=== PATIENT | male | born 1965 | race Caucasian/White ===

== ENCOUNTER 2021-07-21 13:29 | Inpatient (IN) ==
[2021-07-21] MEDS ORDERED: DEXTROSE 50% 25 GM/50 ML SYRINGE IV ONE ×2 (13:37→18:46)
[2021-07-21] MEDS ORDERED: DEXTROSE 50% 25 GM/50 ML VIAL IV STA (13:40)
[2021-07-21] MEDS ORDERED: NOREPINEPHRINE 4 MG/4 ML VIAL IV ONE (14:01)
[2021-07-21 14:03] LABS: Basophils % 0.4 % (0.0-0.8); Eosinophils % 0.1 % (0.00-10.9); Hematocrit 46.2 VOL% (42.0-52.0); Hemoglobin 13.7 GM/DL (14.0-18.0); Immature Granulocytes % 1.3 %; Lymphocytes # 0.6 10*3/uL (1.4-4.0); Lymphocytes % 7.9 % (21.2-54.2); Mean Corpuscular HGB Conc 29.7 GM/DL (32-36); Mean Corpuscular Volume 106.7 FL (87-102); Mean Platelet Volume 9.7 FL (9.6-12.0); Monocytes % 2.4 % (1.7-12.7); NRBC # 0.19 10*3/uL; Neutrophils % 87.9 % (38.7-73.9); Platelet Count 234 T/CUMM (130-400); Red Blood Count 4.33 MC/CUMM (3.8-5.5); Red Cell Distribution Width 15.1 % (9.3-17.3)
[2021-07-21] MEDS: NOREPINEPHRINE 8 MG in SODIUM CHLORIDE 0.9% 242 ML IV PRN ×3 (14:13→22:20)
[2021-07-21] MEDS: MIDAZOLAM 100 MG in SODIUM CHLORIDE 0.9% 80 ML IV PRN (14:30)
[2021-07-21 14:31] LABS: PT Patient Result 21.9 SECS (10.5-12.0)
[2021-07-21 14:35] LABS: Pt O2 Delivery Device Ventilator
[2021-07-21 14:39] LABS: Alanine Aminotransferase 1861 U/L (16-61); Albumin 2.3 G/DL (3.4-5.0); Alkaline Phosphatase 114 U/L (45-117); Aspartate Amino Transferase 2564 U/L (0-37); Blood Urea Nitrogen 38 MG/DL (7-18); Calcium 8.5 MG/DL (8.5-10.1); Carbon Dioxide 27 MMOL/L (21-32); Estimated Glom Filtration Rate 38 ML/MIN; Glucose 75 MG/DL (74-106); Osmolality,Calculated 288.3 MOS/KG (273-304); Potassium 4.7 MMOL/L (3.5-5.1); Sodium 141 MMOL/L (136-145); Total Protein 7.1 G/DL (6.4-8.2)
[2021-07-21 14:41] LABS: Atypical Lymphocytes Few; Band Neutrophils 1 % (0-10); Lymphocytes 7 % (20-55); Nucleated Red Blood Cells 6 (0-5); Segmented Neutrophils 90 % (50-85); Total Cells Counted 100
[2021-07-21 14:43] LABS: ABG Base Excess -4.2 MMOL/L (-2.5-2.5); ABG HCO3 27.9 MMOL/L (20-26); ABG Oxygen Saturation 49.2 % (95-100); ABG TCO2 30.7 MMOL/L (23-27)
[2021-07-21 14:45] LABS: ABG PCO2 91.2 MM HG (35-48); ABG PH 7.104 (7.35-7.45); ABG PO2 34.6 MM HG (80-95)
[2021-07-21] MEDS ORDERED: SODIUM CHLORIDE 0.9% 3,400 ML IV ONE (15:06)
[2021-07-21] MEDS ORDERED: LEVOFLOXACIN INJ 750 MG/150 ML PREMIX IV STA (15:07)
[2021-07-21] MEDS ORDERED: HYDROCORTISONE 100 MG VIAL IV STA (15:07)
[2021-07-21 15:10] LABS: ABG Base Excess -6.5 MMOL/L (-2.5-2.5); ABG HCO3 22.4 MMOL/L (20-26); ABG Oxygen Saturation 89.2 % (95-100); ABG PCO2 58.4 MM HG (35-48); ABG PO2 68.6 MM HG (80-95); ABG TCO2 24.2 MMOL/L (23-27)
[2021-07-21 15:13] LABS: ABG PH 7.202 (7.35-7.45)
[2021-07-21] MEDS ORDERED: ALBUTEROL 2.5 MG/3 ML NEB RESP TX ONE (15:15)
[2021-07-21] MEDS ORDERED: ALBUTEROL 2.5 MG/3 ML NEB RESP TX STA ×2 (15:19)
[2021-07-21] MEDS ORDERED: ALBUTEROL 2.5 MG/3 ML NEB RESP TX PRN (16:00)
[2021-07-21] MEDS ORDERED: ONDANSETRON 4 MG/2 ML VIAL IV PRN (16:00)
[2021-07-21] MEDS: PANTOPRAZOLE 40 MG VIAL IV SCH (16:44)
[2021-07-21 17:23] LABS: Bacteria,Urine Occasional /HPF (Few); Bilirubin,Urine Negative (Negative); Blood, Urine Moderate mg/dL (Negative); Glucose,Urine (UA) Negative (Negative); Hyaline Casts,Urine 29 /LPF (0-3); Ketones,Urine Negative (Negative); Mucus,Urine Occasional /LPF (Occasional); Nitrite,Urine Negative (Negative); Protein,Urine >=500 MG/DL; RBC,Urine 2 /HPF (0-4); Urine Appearance CLOUDY (Clear); Urine Color Amber (Yellow); Urine Specific Gravity 1.016 (1.001-1.035)
[2021-07-21] MEDS: LACTATED RINGERS 1,000 ML IV SCH ×2 (17:43→19:40)
[2021-07-21] MEDS: methylPREDNISolone SOD SUC 40 MG/1 ML VIAL IV SCH (17:43)
[2021-07-21] MEDS: LEVOTHYROXINE 100 MCG VIAL IV SCH (18:18)
[2021-07-21] MEDS: AZITHROMYCIN INJ 500 MG in SODIUM CHLORIDE 0.9% 250 ML IV SCH (18:26)
[2021-07-21] MEDS ORDERED: DEXTROSE 10% 250 ML BAG IV PRN (18:47)
[2021-07-21] MEDS: ALBUTEROL/IPRATROPIUM 3 ML NEB RESP TX SCH (20:16)
[2021-07-21] MEDS: DEXTROSE 5% 1,000 ML IV SCH (20:25)
[2021-07-21] MEDS: ENOXAPARIN 30 MG/0.3 ML SYRINGE SUBCUT SCH (21:14)
[2021-07-22] MEDS: ALBUTEROL/IPRATROPIUM 3 ML NEB RESP TX SCH ×4 (00:17→20:15)
[2021-07-22] MEDS: methylPREDNISolone SOD SUC 40 MG/1 ML VIAL IV SCH ×3 (00:25→17:13)
[2021-07-22] MEDS: MIDAZOLAM 100 MG in SODIUM CHLORIDE 0.9% 80 ML IV PRN (00:45)
[2021-07-22 02:35] LABS: Basophils % 0.2 % (0.0-0.8); Hematocrit 46.1 VOL% (42.0-52.0); Hemoglobin 14.1 GM/DL (14.0-18.0); Immature Granulocytes % 0.6 %; Lymphocytes # 0.3 10*3/uL (1.4-4.0); Lymphocytes % 1.9 % (21.2-54.2); Mean Corpuscular HGB Conc 30.6 GM/DL (32-36); Mean Corpuscular Volume 102.9 FL (87-102); Mean Platelet Volume 10.4 FL (9.6-12.0); Monocytes % 2.8 % (1.7-12.7); Neutrophils % 94.5 % (38.7-73.9); Platelet Count 221 T/CUMM (130-400); Red Blood Count 4.48 MC/CUMM (3.8-5.5); Red Cell Distribution Width 14.8 % (9.3-17.3); White Blood Count 15.6 T/CUMM (4-12)
[2021-07-22 02:42] LABS: Calcium 7.6 MG/DL (8.5-10.1); Osmolality,Calculated 287.8 MOS/KG (273-304); Potassium 4.5 MMOL/L (3.5-5.1)
[2021-07-22] MEDS: LACTATED RINGERS 1,000 ML IV SCH ×5 (03:07→22:00)
[2021-07-22 03:13] LABS: Lymphocytes 2 % (20-55); Platelet Estimate Adequate; Segmented Neutrophils 97 % (50-85); Total Cells Counted 100
[2021-07-22 04:18] LABS: Allen Test Positive; Pt O2 Delivery Device Ventilator
[2021-07-22 04:32] LABS: ABG Base Excess -1.6 MMOL/L (-2.5-2.5); ABG HCO3 24.7 MMOL/L (20-26); ABG Oxygen Saturation 97.2 % (95-100); ABG PCO2 47.4 MM HG (35-48); ABG PH 7.334 (7.35-7.45); ABG PO2 113.7 MM HG (80-95); ABG TCO2 26.1 MMOL/L (23-27)
[2021-07-22] MEDS: LEVOTHYROXINE 100 MCG VIAL IV SCH (06:30)
[2021-07-22] MEDS ORDERED: GLUCAGON 1 MG VIAL IM PRN (08:40)
[2021-07-22] MEDS ORDERED: DEXTROSE 50% 25 GM/50 ML VIAL IV PRN (08:40)
[2021-07-22] MEDS: DEXTROSE 5% 1,000 ML IV SCH (16:17)
[2021-07-22] MEDS: carvediloL 6.25 MG TABLET PO SCH (17:13)
[2021-07-22] MEDS: PANTOPRAZOLE 40 MG VIAL IV SCH (17:13)
[2021-07-22] MEDS: AZITHROMYCIN INJ 500 MG in SODIUM CHLORIDE 0.9% 250 ML IV SCH (17:20)
[2021-07-22] MEDS ORDERED: MORPHINE 4 MG/1 ML VIAL ONE (18:15)
[2021-07-22] MEDS: MORPHINE 4 MG/1 ML VIAL IV PRN (18:17)
[2021-07-22] MEDS: ALPRAZolam 0.5 MG TABLET PO SCH (21:30)
[2021-07-22] MEDS: ENOXAPARIN 30 MG/0.3 ML SYRINGE SUBCUT SCH (21:30)
[2021-07-23] MEDS: ALBUTEROL/IPRATROPIUM 3 ML NEB RESP TX SCH ×4 (00:15→18:11)
[2021-07-23] MEDS: MIDAZOLAM 100 MG in SODIUM CHLORIDE 0.9% 80 ML IV PRN (00:25)
[2021-07-23] MEDS: methylPREDNISolone SOD SUC 40 MG/1 ML VIAL IV SCH ×3 (00:27→16:31)
[2021-07-23 03:33] LABS: ABG Base Excess -3.5 MMOL/L (-2.5-2.5); ABG HCO3 24.4 MMOL/L (20-26); ABG Oxygen Saturation 97.7 % (95-100); ABG PCO2 56.4 MM HG (35-48); ABG PH 7.254 (7.35-7.45); ABG TCO2 26.1 MMOL/L (23-27)
[2021-07-23 03:44] LABS: Basophils % 0.2 % (0.0-0.8); Hematocrit 43.4 VOL% (42.0-52.0); Hemoglobin 13.6 GM/DL (14.0-18.0); Immature Granulocytes % 1.1 %; Immature Granulocytes Absolute 0.14 #; Lymphocytes # 0.6 10*3/uL (1.4-4.0); Lymphocytes % 4.4 % (21.2-54.2); Mean Corpuscular HGB Conc 31.3 GM/DL (32-36); Mean Corpuscular Volume 99.5 FL (87-102); Mean Platelet Volume 11.7 FL (9.6-12.0); Monocytes % 1.5 % (1.7-12.7); NRBC # 0.14 10*3/uL; Neutrophils % 92.8 % (38.7-73.9); Platelet Count 160 T/CUMM (130-400); Red Blood Count 4.36 MC/CUMM (3.8-5.5); Red Cell Distribution Width 14.9 % (9.3-17.3); White Blood Count 12.7 T/CUMM (4-12)
[2021-07-23 04:15] LABS: Calcium 7.1 MG/DL (8.5-10.1); Osmolality,Calculated 293.1 MOS/KG (273-304); Potassium 5.1 MMOL/L (3.5-5.1)
[2021-07-23] MEDS: LACTATED RINGERS 1,000 ML IV SCH (04:20)
[2021-07-23 04:22] LABS: Lymphocytes 3 % (20-55); Platelet Estimate Adequate; Segmented Neutrophils 97 % (50-85); Total Cells Counted 100
[2021-07-23] MEDS ORDERED: MAGNESIUM SULF RIDER 4 GM/100 ML PREMIX IV PRN (04:25)
[2021-07-23] MEDS ORDERED: MAGNESIUM SULF RIDER 2 GM/50 ML PREMIX IV PRN (04:25)
[2021-07-23] MEDS: LEVOTHYROXINE 150 MCG TABLET PO SCH (06:28)
[2021-07-23] MEDS ORDERED: LEVOTHYROXINE 150 MCG TABLET PO SCH (06:30)
[2021-07-23] MEDS: FOLIC ACID 1 MG TABLET PO SCH (08:31)
[2021-07-23] MEDS: ALPRAZolam 0.5 MG TABLET PO SCH ×2 (08:31→21:38)
[2021-07-23] MEDS: carvediloL 6.25 MG TABLET PO SCH ×2 (08:31→16:31)
[2021-07-23] MEDS: MORPHINE 4 MG/1 ML VIAL IV PRN ×2 (11:33→17:50)
[2021-07-23] MEDS: PANTOPRAZOLE 40 MG VIAL IV SCH (16:31)
[2021-07-23] MEDS: AZITHROMYCIN INJ 500 MG in SODIUM CHLORIDE 0.9% 250 ML IV SCH (16:31)
[2021-07-23] MEDS: ENOXAPARIN 30 MG/0.3 ML SYRINGE SUBCUT SCH (21:38)
[2021-07-24] MEDS: methylPREDNISolone SOD SUC 40 MG/1 ML VIAL IV SCH ×3 (00:01→19:14)
[2021-07-24] MEDS: ALBUTEROL/IPRATROPIUM 3 ML NEB RESP TX SCH ×4 (00:25→19:30)
[2021-07-24] MEDS: MIDAZOLAM 100 MG in SODIUM CHLORIDE 0.9% 80 ML IV PRN (02:28)
[2021-07-24 03:36] LABS: Basophils % 0.1 % (0.0-0.8); Hematocrit 40.2 VOL% (42.0-52.0); Hemoglobin 12.8 GM/DL (14.0-18.0); Immature Granulocytes Absolute 0.11 #; Lymphocytes # 0.4 10*3/uL (1.4-4.0); Lymphocytes % 3.9 % (21.2-54.2); Mean Corpuscular HGB Conc 31.8 GM/DL (32-36); Mean Corpuscular Volume 98.8 FL (87-102); Mean Platelet Volume 11.8 FL (9.6-12.0); Monocytes % 1.9 % (1.7-12.7); NRBC # 0.12 10*3/uL; Neutrophils % 93.1 % (38.7-73.9); Platelet Count 136 T/CUMM (130-400); Red Blood Count 4.07 MC/CUMM (3.8-5.5); Red Cell Distribution Width 15.3 % (9.3-17.3); White Blood Count 10.9 T/CUMM (4-12)
[2021-07-24 03:38] LABS: ABG Base Excess -1.9 MMOL/L (-2.5-2.5); ABG HCO3 22.8 MMOL/L (20-26); ABG Oxygen Saturation 95.5 % (95-100); ABG PCO2 50.7 MM HG (35-48); ABG PH 7.304 (7.35-7.45); ABG PO2 96.3 MM HG (80-95); ABG TCO2 22.4 MMOL/L (23-27)
[2021-07-24 04:02] LABS: Calcium 7.5 MG/DL (8.5-10.1); Osmolality,Calculated 299.1 MOS/KG (273-304); Potassium 4.6 MMOL/L (3.5-5.1)
[2021-07-24 04:23] LABS: Bilirubin,Direct 0.23 MG/DL (0.0-0.20); Bilirubin,Indirect 0.5 MG/DL (0.0-1.0); Bilirubin,Total 0.7 MG/DL (0.20-1.00); Total Protein 6.5 G/DL (6.4-8.2)
[2021-07-24 04:27] LABS: Band Neutrophils 2 % (0-10); Lymphocytes 1 % (20-55); Platelet Estimate Normal; Segmented Neutrophils 97 % (50-85); Total Cells Counted 100
[2021-07-24] MEDS: LEVOTHYROXINE 150 MCG TABLET PO SCH (05:53)
[2021-07-24] MEDS ORDERED: FUROSEMIDE 40 MG/4 ML VIAL IV ONE (07:36)
[2021-07-24] MEDS: FOLIC ACID 1 MG TABLET PO SCH (08:53)
[2021-07-24] MEDS: ALPRAZolam 0.5 MG TABLET PO SCH ×2 (08:54→20:24)
[2021-07-24] MEDS: carvediloL 6.25 MG TABLET PO SCH ×2 (08:54→19:14)
[2021-07-24] MEDS: MORPHINE 4 MG/1 ML VIAL IV PRN ×2 (12:23→19:33)
[2021-07-24] MEDS: PANTOPRAZOLE 40 MG VIAL IV SCH (19:15)
[2021-07-24] MEDS: AZITHROMYCIN INJ 500 MG in SODIUM CHLORIDE 0.9% 250 ML IV SCH (19:16)
[2021-07-24] MEDS: ENOXAPARIN 30 MG/0.3 ML SYRINGE SUBCUT SCH (20:25)
[2021-07-25] MEDS: methylPREDNISolone SOD SUC 40 MG/1 ML VIAL IV SCH ×3 (00:46→17:53)
[2021-07-25] MEDS: ALBUTEROL/IPRATROPIUM 3 ML NEB RESP TX SCH ×4 (01:45→20:24)
[2021-07-25] MEDS: MIDAZOLAM 100 MG in SODIUM CHLORIDE 0.9% 80 ML IV PRN (01:55)
[2021-07-25 04:23] LABS: Basophils % 0.2 % (0.0-0.8); Hematocrit 41.4 VOL% (42.0-52.0); Hemoglobin 13.1 GM/DL (14.0-18.0); Immature Granulocytes % 1.2 %; Immature Granulocytes Absolute 0.14 #; Lymphocytes # 0.4 10*3/uL (1.4-4.0); Lymphocytes % 3.3 % (21.2-54.2); Mean Corpuscular HGB Conc 31.6 GM/DL (32-36); Mean Corpuscular Volume 97.6 FL (87-102); Mean Platelet Volume 12.4 FL (9.6-12.0); Monocytes % 2.9 % (1.7-12.7); NRBC # 0.08 10*3/uL; Neutrophils % 92.4 % (38.7-73.9); Platelet Count 115 T/CUMM (130-400); Red Blood Count 4.24 MC/CUMM (3.8-5.5); Red Cell Distribution Width 15.7 % (9.3-17.3); White Blood Count 11.9 T/CUMM (4-12)
[2021-07-25 04:29] LABS: ABG Base Excess -0.4 MMOL/L (-2.5-2.5); ABG HCO3 26.1 MMOL/L (20-26); ABG Oxygen Saturation 97.9 % (95-100); ABG PCO2 50.6 MM HG (35-48); ABG PH 7.331 (7.35-7.45); ABG PO2 133.5 MM HG (80-95); ABG TCO2 27.7 MMOL/L (23-27); Allen Test Positive; Pt O2 Delivery Device Ventilator
[2021-07-25 04:36] LABS: Calcium 7.7 MG/DL (8.5-10.1); Osmolality,Calculated 305.7 MOS/KG (273-304); Potassium 4.9 MMOL/L (3.5-5.1)
[2021-07-25 04:51] LABS: Hypochromia Slight; Lymphocytes 3 % (20-55); Nucleated Red Blood Cells 2 (0-5); Segmented Neutrophils 95 % (50-85); Total Cells Counted 100
[2021-07-25 04:52] LABS: Macrocytosis Slight
[2021-07-25] MEDS: LEVOTHYROXINE 150 MCG TABLET PO SCH (05:50)
[2021-07-25] MEDS: carvediloL 6.25 MG TABLET PO SCH ×2 (08:35→17:50)
[2021-07-25] MEDS: FOLIC ACID 1 MG TABLET PO SCH (08:35)
[2021-07-25] MEDS: ALPRAZolam 0.5 MG TABLET PO SCH ×2 (08:35→21:15)
[2021-07-25] MEDS ORDERED: FUROSEMIDE 40 MG/4 ML VIAL IV SCH (09:00)
[2021-07-25] MEDS: PANTOPRAZOLE 40 MG VIAL IV SCH (17:52)
[2021-07-25] MEDS: AZITHROMYCIN INJ 500 MG in SODIUM CHLORIDE 0.9% 250 ML IV SCH (17:54)
[2021-07-25] MEDS: ENOXAPARIN 30 MG/0.3 ML SYRINGE SUBCUT SCH (21:38)
[2021-07-26] MEDS: methylPREDNISolone SOD SUC 40 MG/1 ML VIAL IV SCH ×3 (00:32→16:08)
[2021-07-26] MEDS: ALBUTEROL/IPRATROPIUM 3 ML NEB RESP TX SCH ×4 (01:04→19:53)
[2021-07-26 03:32] LABS: ABG Base Excess 2.5 MMOL/L (-2.5-2.5); ABG HCO3 26.5 MMOL/L (20-26); ABG Oxygen Saturation 95.9 % (95-100); ABG PH 7.362 (7.35-7.45); ABG PO2 92.6 MM HG (80-95); ABG TCO2 25.3 MMOL/L (23-27)
[2021-07-26 03:58] LABS: Basophils % 0.2 % (0.0-0.8); Immature Granulocytes % 1.6 %; Immature Granulocytes Absolute 0.19 #; Lymphocytes # 0.4 10*3/uL (1.4-4.0); Lymphocytes % 3.4 % (21.2-54.2); Mean Corpuscular HGB Conc 32.5 GM/DL (32-36); Mean Corpuscular Volume 97.6 FL (87-102); NRBC # 0.05 10*3/uL; Neutrophils % 91.8 % (38.7-73.9); Platelet Count 127 T/CUMM (130-400); Red Cell Distribution Width 16.1 % (9.3-17.3); White Blood Count 12.2 T/CUMM (4-12)
[2021-07-26 04:15] LABS: Calcium 8.2 MG/DL (8.5-10.1); Potassium 4.2 MMOL/L (3.5-5.1)
[2021-07-26 04:19] LABS: Band Neutrophils 2 % (0-10); Hypochromia 1+; Lymphocytes 4 % (20-55); Segmented Neutrophils 88 % (50-85); Total Cells Counted 100
[2021-07-26 04:20] LABS: Macrocytosis Slight; Platelet Estimate Adequate
[2021-07-26] MEDS: MORPHINE 4 MG/1 ML VIAL IV PRN (09:05)
[2021-07-26] MEDS ORDERED: MOISTURIZING CREAM (EUCERIN) 106 GM JAR TOP PRN (10:01)
[2021-07-26] MEDS: ALPRAZolam 0.5 MG TABLET PO SCH ×2 (10:37→22:40)
[2021-07-26] MEDS: FOLIC ACID 1 MG TABLET PO SCH (10:37)
[2021-07-26] MEDS: LEVOTHYROXINE 150 MCG TABLET PO SCH (10:37)
[2021-07-26] MEDS: carvediloL 6.25 MG TABLET PO SCH ×2 (10:38→16:08)
[2021-07-26] MEDS ORDERED: fentaNYL INJ 1,250 MCG in SODIUM CHLORIDE 0.9% 225 ML IV PRN (15:26)
[2021-07-26] MEDS: PANTOPRAZOLE 40 MG VIAL IV SCH (16:06)
[2021-07-26] MEDS: ENOXAPARIN 30 MG/0.3 ML SYRINGE SUBCUT SCH (22:40)
[2021-07-27] MEDS: ALBUTEROL/IPRATROPIUM 3 ML NEB RESP TX SCH ×4 (00:10→19:13)
[2021-07-27] MEDS: methylPREDNISolone SOD SUC 40 MG/1 ML VIAL IV SCH ×3 (00:45→16:45)
[2021-07-27 04:23] LABS: ABG HCO3 27.9 MMOL/L (20-26); ABG Oxygen Saturation 95.7 % (95-100); ABG PCO2 45.4 MM HG (35-48); ABG PH 7.417 (7.35-7.45); ABG PO2 86.4 MM HG (80-95); ABG TCO2 25.4 MMOL/L (23-27); Allen Test Positive; Pt O2 Delivery Device Ventilator
[2021-07-27 06:14] LABS: Basophils % 0.2 % (0.0-0.8); Hematocrit 40.5 VOL% (42.0-52.0); Hemoglobin 13.1 GM/DL (14.0-18.0); Immature Granulocytes % 2.4 %; Lymphocytes # 0.5 10*3/uL (1.4-4.0); Lymphocytes % 3.9 % (21.2-54.2); Mean Corpuscular HGB Conc 32.3 GM/DL (32-36); Mean Platelet Volume 11.1 FL (9.6-12.0); Monocytes % 2.9 % (1.7-12.7); NRBC # 0.03 10*3/uL; Neutrophils % 90.6 % (38.7-73.9); Platelet Count 124 T/CUMM (130-400); Red Blood Count 4.09 MC/CUMM (3.8-5.5); Red Cell Distribution Width 16.2 % (9.3-17.3); White Blood Count 12.6 T/CUMM (4-12)
[2021-07-27 06:38] LABS: Calcium 9.2 MG/DL (8.5-10.1); Potassium 4.4 MMOL/L (3.5-5.1)
[2021-07-27 06:41] LABS: Band Neutrophils 1 % (0-10); Lymphocytes 3 % (20-55); Platelet Estimate Normal; Segmented Neutrophils 92 % (50-85); Total Cells Counted 100
[2021-07-27] MEDS ORDERED: DEXMEDETOMIDINE 200 MCG in SODIUM CHLORIDE 0.9% 48 ML IV PRN (08:00)
[2021-07-27] MEDS: LEVOTHYROXINE 150 MCG TABLET PO SCH (08:30)
[2021-07-27] MEDS: ALPRAZolam 0.5 MG TABLET PO SCH ×2 (08:30→21:33)
[2021-07-27] MEDS: carvediloL 6.25 MG TABLET PO SCH ×2 (08:30→16:45)
[2021-07-27] MEDS: FOLIC ACID 1 MG TABLET PO SCH (08:30)
[2021-07-27] MEDS: SENNA 8.6 MG TABLET PO SCH ×2 (10:05→21:33)
[2021-07-27] MEDS: DOCUSATE SODIUM 100 MG/10 ML UDCUP PO SCH ×2 (10:05→21:33)
[2021-07-27] MEDS: PANTOPRAZOLE 40 MG VIAL IV SCH (16:44)
[2021-07-27] MEDS: ENOXAPARIN 30 MG/0.3 ML SYRINGE SUBCUT SCH (21:30)
[2021-07-28] MEDS: ALBUTEROL/IPRATROPIUM 3 ML NEB RESP TX SCH ×4 (00:04→19:50)
[2021-07-28] MEDS: methylPREDNISolone SOD SUC 40 MG/1 ML VIAL IV SCH ×3 (01:41→16:58)
[2021-07-28 03:53] LABS: Basophils % 0.3 % (0.0-0.8); Hematocrit 40.5 VOL% (42.0-52.0); Immature Granulocytes % 2.5 %; Immature Granulocytes Absolute 0.38 #; Lymphocytes # 0.5 10*3/uL (1.4-4.0); Lymphocytes % 3.3 % (21.2-54.2); Mean Corpuscular HGB Conc 32.1 GM/DL (32-36); Mean Corpuscular Volume 99.3 FL (87-102); Mean Platelet Volume 11.5 FL (9.6-12.0); Monocytes % 4.3 % (1.7-12.7); Neutrophils % 89.6 % (38.7-73.9); Platelet Count 106 T/CUMM (130-400); Red Blood Count 4.08 MC/CUMM (3.8-5.5); Red Cell Distribution Width 16.7 % (9.3-17.3); White Blood Count 15.2 T/CUMM (4-12)
[2021-07-28 04:14] LABS: Calcium 9.2 MG/DL (8.5-10.1); Potassium 5.2 MMOL/L (3.5-5.1)
[2021-07-28 04:21] LABS: Band Neutrophils 2 % (0-10); Hypochromia Slight; Lymphocytes 2 % (20-55); Metamyelocytes 1 %; Segmented Neutrophils 94 % (50-85); Total Cells Counted 100
[2021-07-28 04:22] LABS: Macrocytosis Slight; Platelet Estimate Adequate
[2021-07-28 04:30] LABS: ABG Base Excess 3.7 MMOL/L (-2.5-2.5); ABG HCO3 27.7 MMOL/L (20-26); ABG Oxygen Saturation 94.3 % (95-100); ABG PCO2 48.6 MM HG (35-48); ABG PH 7.393 (7.35-7.45); ABG PO2 78.9 MM HG (80-95); Allen Test Positive; Pt O2 Delivery Device Ventilator
[2021-07-28] MEDS: LEVOTHYROXINE 150 MCG TABLET PO SCH (06:48)
[2021-07-28] MEDS: carvediloL 6.25 MG TABLET PO SCH ×2 (08:21→16:50)
[2021-07-28] MEDS: DOCUSATE SODIUM 100 MG/10 ML UDCUP PO SCH ×2 (08:21→21:24)
[2021-07-28] MEDS: FOLIC ACID 1 MG TABLET PO SCH (08:22)
[2021-07-28] MEDS: ALPRAZolam 0.5 MG TABLET PO SCH ×2 (08:22→21:25)
[2021-07-28] MEDS: SENNA 8.6 MG TABLET PO SCH ×2 (08:22→21:25)
[2021-07-28] MEDS ORDERED: FUROSEMIDE 40 MG/4 ML VIAL IV ONE (10:00)
[2021-07-28] MEDS: amLODIPine 5 MG TABLET PO SCH (11:31)
[2021-07-28] MEDS: ENOXAPARIN 30 MG/0.3 ML SYRINGE SUBCUT SCH (21:25)
[2021-07-29] MEDS: methylPREDNISolone SOD SUC 40 MG/1 ML VIAL IV SCH ×3 (00:15→17:50)
[2021-07-29] MEDS: ALBUTEROL/IPRATROPIUM 3 ML NEB RESP TX SCH ×4 (01:55→19:15)
[2021-07-29] MEDS: LEVOTHYROXINE 150 MCG TABLET PO SCH (06:03)
[2021-07-29 08:27] LABS: Blood Urea Nitrogen 86 MG/DL (7-18); Calcium 9.1 MG/DL (8.5-10.1); Carbon Dioxide 27 MMOL/L (21-32); Estimated Glom Filtration Rate 40 ML/MIN; Glucose 146 MG/DL (74-106); Osmolality,Calculated 311.1 MOS/KG (273-304); Potassium 5.3 MMOL/L (3.5-5.1); Sodium 142 MMOL/L (136-145)
[2021-07-29] MEDS: carvediloL 6.25 MG TABLET PO SCH ×2 (09:51→17:50)
[2021-07-29] MEDS: DOCUSATE SODIUM 100 MG/10 ML UDCUP PO SCH ×2 (09:51→20:52)
[2021-07-29] MEDS: ERGOCALCIFEROL 50,000 UNIT CAPSULE PO SCH (09:52)
[2021-07-29] MEDS: FAMOTIDINE 20 MG/2 ML VIAL IV SCH (09:53)
[2021-07-29] MEDS: SENNA 8.6 MG TABLET PO SCH ×2 (09:53→20:53)
[2021-07-29] MEDS: FOLIC ACID 1 MG TABLET PO SCH (09:53)
[2021-07-29] MEDS: amLODIPine 5 MG TABLET PO SCH (09:53)
[2021-07-29] MEDS: ALPRAZolam 0.5 MG TABLET PO SCH ×2 (09:54→20:53)
[2021-07-29 09:58] LABS: Pt O2 Delivery Device Ventilator
[2021-07-29 10:00] LABS: ABG Base Excess 4.3 MMOL/L (-2.5-2.5); ABG HCO3 30.7 MMOL/L (20-26); ABG Oxygen Saturation 96.9 % (95-100); ABG PCO2 53.3 MM HG (35-48); ABG PH 7.378 (7.35-7.45); ABG PO2 103.3 MM HG (80-95); ABG TCO2 32.3 MMOL/L (23-27)
[2021-07-29] MEDS: ENOXAPARIN 30 MG/0.3 ML SYRINGE SUBCUT SCH (20:52)
[2021-07-29] MEDS: MORPHINE 4 MG/1 ML VIAL IV PRN (20:53)
[2021-07-30] MEDS: methylPREDNISolone SOD SUC 40 MG/1 ML VIAL IV SCH ×3 (00:20→17:12)
[2021-07-30] MEDS: ALBUTEROL/IPRATROPIUM 3 ML NEB RESP TX SCH ×5 (01:15→18:58)
[2021-07-30 04:34] LABS: Basophils % 0.4 % (0.0-0.8); Hematocrit 42.5 VOL% (42.0-52.0); Hemoglobin 13.6 GM/DL (14.0-18.0); Immature Granulocytes % 5.6 %; Immature Granulocytes Absolute 0.62 #; Lymphocytes # 0.5 10*3/uL (1.4-4.0); Lymphocytes % 4.5 % (21.2-54.2); Mean Corpuscular Volume 100.5 FL (87-102); Mean Platelet Volume 11.3 FL (9.6-12.0); Monocytes % 4.7 % (1.7-12.7); Neutrophils % 84.8 % (38.7-73.9); Platelet Count 94 T/CUMM (130-400); Red Blood Count 4.23 MC/CUMM (3.8-5.5); Red Cell Distribution Width 16.5 % (9.3-17.3); White Blood Count 11.1 T/CUMM (4-12)
[2021-07-30 04:48] LABS: ABG Base Excess 4.5 MMOL/L (-2.5-2.5); ABG HCO3 28.4 MMOL/L (20-26); ABG PCO2 55.7 MM HG (35-48); ABG PH 7.362 (7.35-7.45); ABG TCO2 27.5 MMOL/L (23-27)
[2021-07-30 05:02] LABS: Hypochromia Slight; Lymphocytes 8 % (20-55); Microcytosis Slight; Platelet Estimate Decreased; Segmented Neutrophils 91 % (50-85); Total Cells Counted 100
[2021-07-30 05:03] LABS: Albumin 2.2 G/DL (3.4-5.0); Bilirubin,Total 0.6 MG/DL (0.20-1.00); Calcium 8.7 MG/DL (8.5-10.1); Osmolality,Calculated 308.1 MOS/KG (273-304); Potassium 5.4 MMOL/L (3.5-5.1); Total Protein 6.8 G/DL (6.4-8.2)
[2021-07-30] MEDS: LEVOTHYROXINE 150 MCG TABLET PO SCH (06:13)
[2021-07-30] MEDS: DOCUSATE SODIUM 100 MG/10 ML UDCUP PO SCH ×2 (09:05→21:08)
[2021-07-30] MEDS: SENNA 8.6 MG TABLET PO SCH ×2 (09:05→21:09)
[2021-07-30] MEDS: ALPRAZolam 0.5 MG TABLET PO SCH ×2 (09:05→21:09)
[2021-07-30] MEDS: FAMOTIDINE 20 MG/2 ML VIAL IV SCH (09:05)
[2021-07-30] MEDS: FOLIC ACID 1 MG TABLET PO SCH (09:08)
[2021-07-30] MEDS: amLODIPine 5 MG TABLET PO SCH (09:08)
[2021-07-30] MEDS: carvediloL 6.25 MG TABLET PO SCH ×2 (09:08→17:12)
[2021-07-30] MEDS ORDERED: SODIUM POLYSTYRENE SULFATE 15 GM/60 ML BOTTLE PO ONE (09:18)
[2021-07-30 11:59] LABS: ABG HCO3 25.2 MMOL/L (20-26); ABG Oxygen Saturation 93.4 % (95-100); ABG PH 7.219 (7.35-7.45); ABG PO2 91.1 MM HG (80-95); ABG TCO2 28.6 MMOL/L (23-27)
[2021-07-30 12:00] LABS: ABG PCO2 79.3 MM HG (35-48)
[2021-07-30] MEDS: ENOXAPARIN 30 MG/0.3 ML SYRINGE SUBCUT SCH (21:09)
[2021-07-31] MEDS: methylPREDNISolone SOD SUC 40 MG/1 ML VIAL IV SCH ×3 (00:30→17:35)
[2021-07-31] MEDS: ALBUTEROL/IPRATROPIUM 3 ML NEB RESP TX SCH ×4 (00:48→19:46)
[2021-07-31 04:06] LABS: ABG Base Excess 3.6 MMOL/L (-2.5-2.5); ABG HCO3 28.9 MMOL/L (20-26); ABG Oxygen Saturation 95.6 % (95-100); ABG PCO2 46.6 MM HG (35-48); ABG PH 7.411 (7.35-7.45); ABG PO2 83.3 MM HG (80-95); ABG TCO2 30.4 MMOL/L (23-27); Allen Test Positive; Pt O2 Delivery Device Ventilator
[2021-07-31 06:52] LABS: Basophils % 0.2 % (0.0-0.8); Hematocrit 41.5 VOL% (42.0-52.0); Hemoglobin 13.2 GM/DL (14.0-18.0); Immature Granulocytes % 2.9 %; Lymphocytes # 0.5 10*3/uL (1.4-4.0); Lymphocytes % 4.6 % (21.2-54.2); Mean Corpuscular HGB Conc 31.8 GM/DL (32-36); Mean Platelet Volume 11.6 FL (9.6-12.0); Monocytes % 4.1 % (1.7-12.7); Neutrophils % 88.2 % (38.7-73.9); Platelet Count 87 T/CUMM (130-400); Red Blood Count 4.15 MC/CUMM (3.8-5.5); Red Cell Distribution Width 15.9 % (9.3-17.3); White Blood Count 10.3 T/CUMM (4-12)
[2021-07-31 07:10] LABS: Calcium 8.6 MG/DL (8.5-10.1); Osmolality,Calculated 299.7 MOS/KG (273-304); Potassium 4.9 MMOL/L (3.5-5.1)
[2021-07-31 07:22] LABS: Lymphocytes 5 % (20-55); Myelocytes 1 %; Platelet Estimate Adequate; Polychromasia Slight; Segmented Neutrophils 92 % (50-85); Target Cells Slight; Total Cells Counted 100
[2021-07-31] MEDS: LEVOTHYROXINE 150 MCG TABLET PO SCH (07:39)
[2021-07-31] MEDS: carvediloL 6.25 MG TABLET PO SCH ×2 (09:44→17:10)
[2021-07-31] MEDS: ALPRAZolam 0.5 MG TABLET PO SCH ×3 (09:44→23:48)
[2021-07-31] MEDS: amLODIPine 5 MG TABLET PO SCH (09:44)
[2021-07-31] MEDS: FAMOTIDINE 20 MG/2 ML VIAL IV SCH (09:44)
[2021-07-31] MEDS: FOLIC ACID 1 MG TABLET PO SCH (09:44)
[2021-07-31] MEDS: SENNA 8.6 MG TABLET PO SCH ×2 (09:44→20:22)
[2021-07-31] MEDS: DOCUSATE SODIUM 100 MG/10 ML UDCUP PO SCH ×2 (09:45→20:22)
[2021-07-31] MEDS: DEXMEDETOMIDINE 400 MCG in SODIUM CHLORIDE 0.9% 96 ML IV PRN ×2 (11:50→20:05)
[2021-07-31] MEDS ORDERED: LORazepam 2 MG/1 ML VIAL ONE (13:59)
[2021-07-31] MEDS: LORazepam 2 MG/1 ML VIAL IV PRN ×2 (14:01→19:06)
[2021-07-31] MEDS ORDERED: HALOPERIDOL 5 MG/ML AMP IM PRN (14:17)
[2021-07-31] MEDS ORDERED: MORPHINE 4 MG/1 ML VIAL ONE (16:11)
[2021-07-31] MEDS: MORPHINE 4 MG/1 ML VIAL IV PRN ×2 (16:12→23:04)
[2021-07-31] MEDS: hydrALAZINE 20 MG/1 ML VIAL IV PRN (17:08)
[2021-07-31] MEDS: ZIPRASIDONE 20 MG/1 ML VIAL IM PRN (17:36)
[2021-07-31] MEDS: HALOPERIDOL 5 MG/ML AMP IV PRN ×3 (17:48→22:41)
[2021-07-31 18:08] LABS: ABG Base Excess 3.2 MMOL/L (-2.5-2.5); ABG HCO3 27.1 MMOL/L (20-26); ABG Oxygen Saturation 93.1 % (95-100); ABG PCO2 53.3 MM HG (35-48); ABG PH 7.359 (7.35-7.45); ABG PO2 77.4 MM HG (80-95); ABG TCO2 26.1 MMOL/L (23-27); Allen Test Positive; Pt O2 Delivery Device Venturi Mask
[2021-07-31] MEDS: ENOXAPARIN 30 MG/0.3 ML SYRINGE SUBCUT SCH (20:18)
[2021-08-01] MEDS: hydrALAZINE 20 MG/1 ML VIAL IV PRN ×2 (00:18→07:16)
[2021-08-01] MEDS: ZIPRASIDONE 20 MG/1 ML VIAL IM PRN ×4 (00:18→19:05)
[2021-08-01] MEDS: methylPREDNISolone SOD SUC 40 MG/1 ML VIAL IV SCH ×4 (00:19→23:30)
[2021-08-01] MEDS: ALBUTEROL/IPRATROPIUM 3 ML NEB RESP TX SCH ×4 (00:32→19:35)
[2021-08-01] MEDS: DEXMEDETOMIDINE 400 MCG in SODIUM CHLORIDE 0.9% 96 ML IV PRN ×4 (01:51→19:40)
[2021-08-01 04:12] LABS: ABG Base Excess 3.7 MMOL/L (-2.5-2.5); ABG HCO3 27.7 MMOL/L (20-26); ABG Oxygen Saturation 97.3 % (95-100); ABG PCO2 51.2 MM HG (35-48); ABG PH 7.379 (7.35-7.45); ABG TCO2 25.8 MMOL/L (23-27)
[2021-08-01 04:57] LABS: Basophils % 0.1 % (0.0-0.8); Hematocrit 43.5 VOL% (42.0-52.0); Hemoglobin 13.9 GM/DL (14.0-18.0); Immature Granulocytes % 2.4 %; Immature Granulocytes Absolute 0.23 #; Lymphocytes # 0.5 10*3/uL (1.4-4.0); Mean Corpuscular Volume 99.1 FL (87-102); Mean Platelet Volume 11.2 FL (9.6-12.0); Monocytes % 2.2 % (1.7-12.7); Neutrophils % 90.3 % (38.7-73.9); Red Blood Count 4.39 MC/CUMM (3.8-5.5); Red Cell Distribution Width 15.6 % (9.3-17.3); White Blood Count 9.4 T/CUMM (4-12)
[2021-08-01 04:59] LABS: Platelet Count 96 T/CUMM (130-400)
[2021-08-01 05:21] LABS: Osmolality,Calculated 303.3 MOS/KG (273-304); Potassium 5.1 MMOL/L (3.5-5.1)
[2021-08-01] MEDS: LORazepam 2 MG/1 ML VIAL IV PRN ×4 (05:50→23:20)
[2021-08-01] MEDS: LEVOTHYROXINE 150 MCG TABLET PO SCH (05:50)
[2021-08-01] MEDS: SENNA 8.6 MG TABLET PO SCH ×2 (09:43→21:23)
[2021-08-01] MEDS: DOCUSATE SODIUM 100 MG/10 ML UDCUP PO SCH ×2 (09:43→21:22)
[2021-08-01] MEDS: FAMOTIDINE 20 MG/2 ML VIAL IV SCH (09:43)
[2021-08-01] MEDS: carvediloL 6.25 MG TABLET PO SCH ×2 (09:44→17:03)
[2021-08-01] MEDS: amLODIPine 5 MG TABLET PO SCH (09:44)
[2021-08-01] MEDS: ALPRAZolam 0.5 MG TABLET PO SCH ×4 (09:44→21:23)
[2021-08-01] MEDS: FOLIC ACID 1 MG TABLET PO SCH (09:45)
[2021-08-01] MEDS: HALOPERIDOL 5 MG/ML AMP IV PRN (12:51)
[2021-08-01] MEDS: ENOXAPARIN 30 MG/0.3 ML SYRINGE SUBCUT SCH (21:22)
[2021-08-01] MEDS: PREGABALIN 75 MG CAPSULE PO SCH (22:18)
[2021-08-02] MEDS: ZIPRASIDONE 20 MG/1 ML VIAL IM PRN ×2 (00:11→19:53)
[2021-08-02] MEDS: hydrALAZINE 20 MG/1 ML VIAL IV PRN (00:12)
[2021-08-02] MEDS: ALBUTEROL/IPRATROPIUM 3 ML NEB RESP TX SCH ×4 (01:10→18:16)
[2021-08-02] MEDS: DEXMEDETOMIDINE 400 MCG in SODIUM CHLORIDE 0.9% 96 ML IV PRN ×4 (01:39→20:26)
[2021-08-02 03:40] LABS: ABG Base Excess 1.2 MMOL/L (-2.5-2.5); ABG HCO3 25.4 MMOL/L (20-26); ABG Oxygen Saturation 95.4 % (95-100); ABG PCO2 52.3 MM HG (35-48); ABG PO2 89.4 MM HG (80-95); ABG TCO2 24.4 MMOL/L (23-27)
[2021-08-02] MEDS: LEVOTHYROXINE 150 MCG TABLET PO SCH (05:50)
[2021-08-02 06:05] LABS: Basophils % 0.2 % (0.0-0.8); Hematocrit 45.1 VOL% (42.0-52.0); Hemoglobin 14.3 GM/DL (14.0-18.0); Immature Granulocytes % 1.3 %; Immature Granulocytes Absolute 0.13 #; Lymphocytes # 0.4 10*3/uL (1.4-4.0); Lymphocytes % 4.2 % (21.2-54.2); Mean Corpuscular HGB Conc 31.7 GM/DL (32-36); Mean Corpuscular Volume 101.3 FL (87-102); Mean Platelet Volume 12.3 FL (9.6-12.0); Monocytes % 2.6 % (1.7-12.7); Neutrophils % 91.7 % (38.7-73.9); Red Blood Count 4.45 MC/CUMM (3.8-5.5); Red Cell Distribution Width 15.8 % (9.3-17.3); White Blood Count 9.9 T/CUMM (4-12)
[2021-08-02 06:06] LABS: Platelet Count 51 T/CUMM (130-400)
[2021-08-02 06:37] LABS: Calcium 8.9 MG/DL (8.5-10.1); Osmolality,Calculated 302.1 MOS/KG (273-304)
[2021-08-02 06:52] LABS: Lymphocytes 7 % (20-55); Segmented Neutrophils 89 % (50-85); Total Cells Counted 100
[2021-08-02 06:53] LABS: Hypochromia 1+; Microcytosis Slight
[2021-08-02] MEDS: FAMOTIDINE 20 MG/2 ML VIAL IV SCH (07:50)
[2021-08-02] MEDS: methylPREDNISolone SOD SUC 40 MG/1 ML VIAL IV SCH ×2 (07:50→21:27)
[2021-08-02] MEDS: LORazepam 2 MG/1 ML VIAL IV PRN (07:50)
[2021-08-02] MEDS: MORPHINE 4 MG/1 ML VIAL IV PRN ×2 (08:00→19:53)
[2021-08-02] MEDS ORDERED: ENOXAPARIN 40 MG/0.4 ML SYRINGE SUBCUT SCH (08:00)
[2021-08-02] MEDS: SENNA 8.6 MG TABLET PO SCH ×2 (08:50→21:28)
[2021-08-02] MEDS: DOCUSATE SODIUM 100 MG/10 ML UDCUP PO SCH ×2 (08:50→21:27)
[2021-08-02] MEDS: FONDAPARINUX 2.5 MG/0.5 ML SYRINGE SUBCUT SCH (08:50)
[2021-08-02] MEDS: carvediloL 6.25 MG TABLET PO SCH ×2 (08:50→17:50)
[2021-08-02] MEDS: ALPRAZolam 0.5 MG TABLET PO SCH ×3 (08:50→21:28)
[2021-08-02] MEDS: PREGABALIN 75 MG CAPSULE PO SCH ×2 (08:50→21:27)
[2021-08-02] MEDS: PANTOPRAZOLE 40 MG VIAL IV SCH (08:50)
[2021-08-02] MEDS: amLODIPine 5 MG TABLET PO SCH (08:50)
[2021-08-02] MEDS: FOLIC ACID 1 MG TABLET PO SCH (08:50)
[2021-08-02] MEDS: OLANZapine 10 MG VIAL IM PRN ×2 (10:30→19:53)
[2021-08-02] MEDS: OLANZapine 2.5 MG TABLET PER TUBE SCH ×2 (10:55→21:38)
[2021-08-03] MEDS: LORazepam 2 MG/1 ML VIAL IV PRN ×3 (00:44→13:40)
[2021-08-03] MEDS: HALOPERIDOL 5 MG/ML AMP IV PRN (00:45)
[2021-08-03] MEDS: ALBUTEROL/IPRATROPIUM 3 ML NEB RESP TX SCH ×4 (01:17→20:56)
[2021-08-03] MEDS: DEXMEDETOMIDINE 400 MCG in SODIUM CHLORIDE 0.9% 96 ML IV PRN (04:00)
[2021-08-03 04:22] LABS: ABG Base Excess 0.3 MMOL/L (-2.5-2.5); ABG HCO3 28.9 MMOL/L (20-26); ABG PCO2 64.9 MM HG (35-48); ABG PH 7.267 (7.35-7.45); ABG PO2 95.7 MM HG (80-95); ABG TCO2 30.9 MMOL/L (23-27)
[2021-08-03 05:20] LABS: Basophils % 0.1 % (0.0-0.8); Hematocrit 45.6 VOL% (42.0-52.0); Hemoglobin 14.3 GM/DL (14.0-18.0); Immature Granulocytes % 0.8 %; Lymphocytes # 0.5 10*3/uL (1.4-4.0); Lymphocytes % 4.2 % (21.2-54.2); Mean Corpuscular HGB Conc 31.4 GM/DL (32-36); Mean Corpuscular Volume 102.2 FL (87-102); Mean Platelet Volume 11.3 FL (9.6-12.0); Monocytes % 3.6 % (1.7-12.7); Neutrophils % 91.3 % (38.7-73.9); Platelet Count 107 T/CUMM (130-400); Red Blood Count 4.46 MC/CUMM (3.8-5.5); Red Cell Distribution Width 15.4 % (9.3-17.3); White Blood Count 11.9 T/CUMM (4-12)
[2021-08-03 05:44] LABS: Lymphocytes 3 % (20-55); Platelet Estimate Decreased; Segmented Neutrophils 93 % (50-85); Total Cells Counted 100
[2021-08-03 05:48] LABS: Calcium 9.8 MG/DL (8.5-10.1); Osmolality,Calculated 300.4 MOS/KG (273-304); Potassium 4.7 MMOL/L (3.5-5.1)
[2021-08-03] MEDS: LEVOTHYROXINE 150 MCG TABLET PO SCH (06:23)
[2021-08-03] MEDS: methylPREDNISolone SOD SUC 40 MG/1 ML VIAL IV SCH ×2 (08:50→21:47)
[2021-08-03] MEDS: PANTOPRAZOLE 40 MG VIAL IV SCH (08:50)
[2021-08-03] MEDS: FONDAPARINUX 2.5 MG/0.5 ML SYRINGE SUBCUT SCH (08:50)
[2021-08-03] MEDS: amLODIPine 5 MG TABLET PO SCH (08:55)
[2021-08-03] MEDS: DOCUSATE SODIUM 100 MG/10 ML UDCUP PO SCH ×2 (08:55→21:41)
[2021-08-03] MEDS: SENNA 8.6 MG TABLET PO SCH ×2 (08:55→21:41)
[2021-08-03] MEDS: ALPRAZolam 0.5 MG TABLET PO SCH ×3 (08:55→21:41)
[2021-08-03] MEDS: PREGABALIN 75 MG CAPSULE PO SCH ×2 (08:55→21:50)
[2021-08-03] MEDS: carvediloL 6.25 MG TABLET PO SCH ×2 (08:55→17:00)
[2021-08-03] MEDS: OLANZapine 5 MG TABLET PER TUBE SCH ×2 (08:55→21:41)
[2021-08-03] MEDS: FOLIC ACID 1 MG TABLET PO SCH (08:55)
[2021-08-03] MEDS: OLANZapine 10 MG VIAL IM PRN (09:20)
[2021-08-03] MEDS ORDERED: ETOMIDATE 20 MG/10 ML VIAL IV ONE ×2 (14:47→14:48)
[2021-08-03 15:43] LABS: ABG Base Excess -2.3 MMOL/L (-2.5-2.5); ABG HCO3 22.4 MMOL/L (20-26); ABG Oxygen Saturation 93.7 % (95-100); ABG PO2 85.9 MM HG (80-95); ABG TCO2 26.7 MMOL/L (23-27)
[2021-08-03 15:45] LABS: ABG PH 7.174 (7.35-7.45)
[2021-08-03 16:53] LABS: ABG Base Excess -1.7 MMOL/L (-2.5-2.5); ABG HCO3 22.8 MMOL/L (20-26); ABG Oxygen Saturation 93.1 % (95-100); ABG PH 7.218 (7.35-7.45); ABG PO2 77.5 MM HG (80-95); ABG TCO2 25.4 MMOL/L (23-27)
[2021-08-03 16:57] LABS: ABG PCO2 71.3 MM HG (35-48)
[2021-08-03] MEDS: MIDAZOLAM 100 MG in SODIUM CHLORIDE 0.9% 80 ML IV PRN (22:53)
[2021-08-04] MEDS: ALBUTEROL/IPRATROPIUM 3 ML NEB RESP TX SCH ×4 (01:12→20:19)
[2021-08-04] MEDS ORDERED: PHENYLEPHRINE DRIP 40 MG/250 ML PREMIX IV ONE (02:40)
[2021-08-04] MEDS: PHENYLEPHRINE DRIP 40 MG/250 ML PREMIX IV PRN ×4 (02:53→17:19)
[2021-08-04 05:00] LABS: ABG Base Excess -3.6 MMOL/L (-2.5-2.5); ABG HCO3 21.4 MMOL/L (20-26); ABG Oxygen Saturation 94.5 % (95-100); ABG PO2 88.8 MM HG (80-95); ABG TCO2 24.5 MMOL/L (23-27)
[2021-08-04 05:02] LABS: ABG PH 7.188 (7.35-7.45)
[2021-08-04 05:16] LABS: Calcium 9.3 MG/DL (8.5-10.1); Osmolality,Calculated 307.4 MOS/KG (273-304); Potassium 4.8 MMOL/L (3.5-5.1)
[2021-08-04 05:48] LABS: Basophils # 0.1 10*3/uL (0.0-0.2); Basophils % 0.2 % (0.0-0.8); Hematocrit 49.8 VOL% (42.0-52.0); Hemoglobin 15.3 GM/DL (14.0-18.0); Immature Granulocytes % 1.5 %; Lymphocytes # 0.5 10*3/uL (1.4-4.0); Lymphocytes % 1.9 % (21.2-54.2); Mean Corpuscular HGB Conc 30.7 GM/DL (32-36); Mean Corpuscular Volume 104.6 FL (87-102); Mean Platelet Volume 11.6 FL (9.6-12.0); Monocytes % 5.4 % (1.7-12.7); Platelet Count 163 T/CUMM (130-400); Red Blood Count 4.76 MC/CUMM (3.8-5.5); Red Cell Distribution Width 15.4 % (9.3-17.3)
[2021-08-04 06:04] LABS: Lymphocytes 1 % (20-55); Platelet Estimate Adequate; Segmented Neutrophils 92 % (50-85); Total Cells Counted 100
[2021-08-04] MEDS: LEVOTHYROXINE 150 MCG TABLET PO SCH (06:58)
[2021-08-04] MEDS: amLODIPine 5 MG TABLET PO SCH (08:13)
[2021-08-04] MEDS: carvediloL 6.25 MG TABLET PO SCH ×2 (08:15→18:08)
[2021-08-04] MEDS: ALPRAZolam 0.5 MG TABLET PO SCH ×3 (08:45→20:07)
[2021-08-04] MEDS: OLANZapine 5 MG TABLET PER TUBE SCH ×2 (08:45→19:56)
[2021-08-04] MEDS: FOLIC ACID 1 MG TABLET PO SCH (08:45)
[2021-08-04] MEDS: SENNA 8.6 MG TABLET PO SCH ×2 (08:45→20:02)
[2021-08-04] MEDS: FONDAPARINUX 2.5 MG/0.5 ML SYRINGE SUBCUT SCH (08:46)
[2021-08-04] MEDS: methylPREDNISolone SOD SUC 40 MG/1 ML VIAL IV SCH ×3 (08:46→19:51)
[2021-08-04] MEDS: DOCUSATE SODIUM 100 MG/10 ML UDCUP PO SCH ×2 (08:46→20:02)
[2021-08-04] MEDS: PANTOPRAZOLE 40 MG VIAL IV SCH (08:46)
[2021-08-04] MEDS: PREGABALIN 75 MG CAPSULE PO SCH ×2 (09:10→20:07)
[2021-08-04] MEDS: MIDAZOLAM 100 MG in SODIUM CHLORIDE 0.9% 80 ML IV PRN ×2 (09:21→22:42)
[2021-08-04] MEDS: MEROPENEM 500 MG in SODIUM CHLORIDE 0.9% 100 ML IV SCH ×3 (09:56→23:31)
[2021-08-04] MEDS: GENTAMICIN INJ 100 MG/100 ML PREMIX IV SCH ×2 (10:30→20:03)
[2021-08-05] MEDS: LORazepam 2 MG/1 ML VIAL IV PRN ×2 (00:21→09:53)
[2021-08-05] MEDS: PHENYLEPHRINE DRIP 40 MG/250 ML PREMIX IV PRN ×2 (00:36→09:23)
[2021-08-05] MEDS: ALBUTEROL/IPRATROPIUM 3 ML NEB RESP TX SCH ×4 (00:36→18:54)
[2021-08-05 04:02] LABS: ABG Base Excess 1.9 MMOL/L (-2.5-2.5); ABG HCO3 25.3 MMOL/L (20-26); ABG Oxygen Saturation 97.2 % (95-100); ABG PCO2 35.7 MM HG (35-48); ABG PH 7.468 (7.35-7.45); ABG PO2 93.3 MM HG (80-95); ABG TCO2 26.4 MMOL/L (23-27)
[2021-08-05 04:13] LABS: Basophils % 0.2 % (0.0-0.8); Hematocrit 39.5 VOL% (42.0-52.0); Hemoglobin 12.8 GM/DL (14.0-18.0); Immature Granulocytes % 0.9 %; Immature Granulocytes Absolute 0.18 #; Lymphocytes # 0.7 10*3/uL (1.4-4.0); Lymphocytes % 3.5 % (21.2-54.2); Mean Corpuscular HGB Conc 32.4 GM/DL (32-36); Mean Corpuscular Volume 98.8 FL (87-102); Mean Platelet Volume 11.6 FL (9.6-12.0); Monocytes % 4.8 % (1.7-12.7); Neutrophils % 90.6 % (38.7-73.9); Platelet Count 146 T/CUMM (130-400); Red Cell Distribution Width 15.5 % (9.3-17.3); White Blood Count 19.6 T/CUMM (4-12)
[2021-08-05 04:35] LABS: Calcium 8.4 MG/DL (8.5-10.1); Osmolality,Calculated 307.8 MOS/KG (273-304); Potassium 4.6 MMOL/L (3.5-5.1)
[2021-08-05] MEDS: LEVOTHYROXINE 150 MCG TABLET PO SCH (05:44)
[2021-08-05] MEDS: FONDAPARINUX 2.5 MG/0.5 ML SYRINGE SUBCUT SCH (08:17)
[2021-08-05] MEDS: carvediloL 6.25 MG TABLET PO SCH ×2 (08:18→17:24)
[2021-08-05] MEDS: methylPREDNISolone SOD SUC 40 MG/1 ML VIAL IV SCH ×2 (08:18→19:58)
[2021-08-05] MEDS: ALPRAZolam 0.5 MG TABLET PO SCH ×3 (08:18→20:15)
[2021-08-05] MEDS: FOLIC ACID 1 MG TABLET PO SCH (08:18)
[2021-08-05] MEDS: OLANZapine 5 MG TABLET PER TUBE SCH ×2 (08:18→19:58)
[2021-08-05] MEDS: SENNA 8.6 MG TABLET PO SCH ×2 (08:18→20:15)
[2021-08-05] MEDS: PANTOPRAZOLE 40 MG VIAL IV SCH (08:19)
[2021-08-05] MEDS: MEROPENEM 500 MG in SODIUM CHLORIDE 0.9% 100 ML IV SCH ×3 (08:19→23:45)
[2021-08-05] MEDS: DOCUSATE SODIUM 100 MG/10 ML UDCUP PO SCH ×2 (08:24→20:15)
[2021-08-05] MEDS: MIDAZOLAM 100 MG in SODIUM CHLORIDE 0.9% 80 ML IV PRN ×2 (08:32→18:36)
[2021-08-05] MEDS: PREGABALIN 75 MG CAPSULE PO SCH ×2 (08:38→20:15)
[2021-08-05] MEDS: GENTAMICIN INJ 100 MG/100 ML PREMIX IV SCH ×2 (08:57→20:16)
[2021-08-05] MEDS: ERGOCALCIFEROL 50,000 UNIT CAPSULE PO SCH (11:16)
[2021-08-05] MEDS: amLODIPine 5 MG TABLET PO SCH (11:34)
[2021-08-06] MEDS: ALBUTEROL/IPRATROPIUM 3 ML NEB RESP TX SCH ×4 (00:28→19:24)
[2021-08-06 03:45] LABS: Basophils % 0.1 % (0.0-0.8); Hematocrit 36.6 VOL% (42.0-52.0); Hemoglobin 11.7 GM/DL (14.0-18.0); Immature Granulocytes % 0.7 %; Lymphocytes # 0.4 10*3/uL (1.4-4.0); Lymphocytes % 3.1 % (21.2-54.2); Mean Platelet Volume 12.1 FL (9.6-12.0); Monocytes % 3.5 % (1.7-12.7); Neutrophils % 92.6 % (38.7-73.9); Platelet Count 126 T/CUMM (130-400); Red Blood Count 3.66 MC/CUMM (3.8-5.5); Red Cell Distribution Width 15.7 % (9.3-17.3); White Blood Count 13.5 T/CUMM (4-12)
[2021-08-06 03:51] LABS: ABG HCO3 24.4 MMOL/L (20-26); ABG Oxygen Saturation 98.3 % (95-100); ABG PCO2 38.5 MM HG (35-48); ABG PH 7.419 (7.35-7.45); ABG PO2 138.8 MM HG (80-95); ABG TCO2 25.5 MMOL/L (23-27)
[2021-08-06 04:09] LABS: Calcium 8.3 MG/DL (8.5-10.1)
[2021-08-06] MEDS: MIDAZOLAM 100 MG in SODIUM CHLORIDE 0.9% 80 ML IV PRN (04:12)
[2021-08-06 04:16] LABS: Lymphocytes 4 % (20-55); Platelet Estimate Decreased; Segmented Neutrophils 95 % (50-85); Stomatocytes 1+; Total Cells Counted 100
[2021-08-06 04:20] LABS: Osmolality,Calculated 306.1 MOS/KG (273-304); Potassium 4.5 MMOL/L (3.5-5.1)
[2021-08-06] MEDS: LEVOTHYROXINE 150 MCG TABLET PO SCH (05:30)
[2021-08-06] MEDS ORDERED: LORazepam 2 MG/1 ML VIAL ONE (08:00)
[2021-08-06] MEDS ORDERED: CEFTAROLINE 400 MG in SODIUM CHLORIDE 0.9% 100 ML IV SCH (08:00)
[2021-08-06] MEDS: LORazepam 2 MG/1 ML VIAL IV PRN (08:01)
[2021-08-06] MEDS: amLODIPine 5 MG TABLET PO SCH (08:33)
[2021-08-06] MEDS: DOCUSATE SODIUM 100 MG/10 ML UDCUP PO SCH ×2 (08:41→20:22)
[2021-08-06] MEDS: ALPRAZolam 0.5 MG TABLET PO SCH ×3 (08:41→20:22)
[2021-08-06] MEDS: SENNA 8.6 MG TABLET PO SCH ×2 (08:41→20:23)
[2021-08-06] MEDS: PREGABALIN 75 MG CAPSULE PO SCH ×2 (08:41→20:23)
[2021-08-06] MEDS: FOLIC ACID 1 MG TABLET PO SCH (08:42)
[2021-08-06] MEDS: carvediloL 6.25 MG TABLET PO SCH ×2 (08:42→16:37)
[2021-08-06] MEDS: FONDAPARINUX 2.5 MG/0.5 ML SYRINGE SUBCUT SCH (08:42)
[2021-08-06] MEDS: MEROPENEM 500 MG in SODIUM CHLORIDE 0.9% 100 ML IV SCH ×3 (08:43→19:40)
[2021-08-06] MEDS: methylPREDNISolone SOD SUC 40 MG/1 ML VIAL IV SCH ×2 (08:45→19:41)
[2021-08-06] MEDS: PANTOPRAZOLE 40 MG VIAL IV SCH (08:47)
[2021-08-06] MEDS: VANCOMYCIN INJ 1,500 MG in SODIUM CHLORIDE 0.9% 500 ML IV SCH (08:54)
[2021-08-06] MEDS: PHENYLEPHRINE DRIP 40 MG/250 ML PREMIX IV PRN (09:31)
[2021-08-06] MEDS: INSULIN REGULAR 100 UNIT/ML SUBCUT SCH ×3 (12:14→23:27)
[2021-08-06 15:12] VITALS: BP 126/59
[2021-08-07] MEDS: ALBUTEROL/IPRATROPIUM 3 ML NEB RESP TX SCH ×4 (00:05→19:14)
[2021-08-07] MEDS: MEROPENEM 500 MG in SODIUM CHLORIDE 0.9% 100 ML IV SCH ×4 (01:03→20:44)
[2021-08-07] MEDS: VANCOMYCIN INJ 1,500 MG in SODIUM CHLORIDE 0.9% 500 ML IV SCH ×2 (02:08→21:21)
[2021-08-07 03:47] LABS: ABG Base Excess 0.4 MMOL/L (-2.5-2.5); ABG HCO3 24.8 MMOL/L (20-26); ABG Oxygen Saturation 98.7 % (95-100); ABG PCO2 42.5 MM HG (35-48); ABG PH 7.387 (7.35-7.45); ABG TCO2 22.8 MMOL/L (23-27)
[2021-08-07 03:51] LABS: Hematocrit 36.5 VOL% (42.0-52.0); Hemoglobin 11.5 GM/DL (14.0-18.0); Immature Granulocytes % 0.6 %; Immature Granulocytes Absolute 0.05 #; Lymphocytes # 0.4 10*3/uL (1.4-4.0); Lymphocytes % 5.2 % (21.2-54.2); Mean Corpuscular HGB Conc 31.5 GM/DL (32-36); Mean Corpuscular Volume 100.6 FL (87-102); Mean Platelet Volume 12.1 FL (9.6-12.0); Monocytes % 4.3 % (1.7-12.7); Neutrophils % 89.9 % (38.7-73.9); Platelet Count 102 T/CUMM (130-400); Red Blood Count 3.63 MC/CUMM (3.8-5.5); Red Cell Distribution Width 15.4 % (9.3-17.3); White Blood Count 7.9 T/CUMM (4-12)
[2021-08-07 04:02] LABS: Calcium 8.4 MG/DL (8.5-10.1); Osmolality,Calculated 308.6 MOS/KG (273-304); Potassium 5.1 MMOL/L (3.5-5.1)
[2021-08-07] MEDS: LEVOTHYROXINE 150 MCG TABLET PO SCH (05:54)
[2021-08-07] MEDS: INSULIN REGULAR 100 UNIT/ML SUBCUT SCH ×3 (06:07→18:37)
[2021-08-07] MEDS: amLODIPine 5 MG TABLET PO SCH (09:00)
[2021-08-07] MEDS: carvediloL 6.25 MG TABLET PO SCH ×2 (09:00→17:23)
[2021-08-07] MEDS: ALPRAZolam 0.5 MG TABLET PO SCH ×3 (09:00→21:20)
[2021-08-07] MEDS: SENNA 8.6 MG TABLET PO SCH ×2 (09:00→21:20)
[2021-08-07] MEDS: DOCUSATE SODIUM 100 MG/10 ML UDCUP PO SCH ×2 (09:01→21:19)
[2021-08-07] MEDS: FOLIC ACID 1 MG TABLET PO SCH (09:01)
[2021-08-07] MEDS: FONDAPARINUX 2.5 MG/0.5 ML SYRINGE SUBCUT SCH (09:01)
[2021-08-07] MEDS: methylPREDNISolone SOD SUC 40 MG/1 ML VIAL IV SCH ×2 (09:02→20:45)
[2021-08-07] MEDS: PANTOPRAZOLE 40 MG VIAL IV SCH (09:04)
[2021-08-07] MEDS: FUROSEMIDE 40 MG/4 ML VIAL IV SCH ×2 (09:06→17:26)
[2021-08-07] MEDS: PREGABALIN 75 MG CAPSULE PO SCH ×2 (09:10→21:20)
[2021-08-07] MEDS: OLANZapine 5 MG TABLET PO SCH (11:38)
[2021-08-08] MEDS: ALBUTEROL/IPRATROPIUM 3 ML NEB RESP TX SCH ×4 (01:01→18:10)
[2021-08-08] MEDS: MEROPENEM 500 MG in SODIUM CHLORIDE 0.9% 100 ML IV SCH ×4 (03:15→20:39)
[2021-08-08 03:56] LABS: ABG HCO3 27.1 MMOL/L (20-26); ABG Oxygen Saturation 97.8 % (95-100); ABG PCO2 44.3 MM HG (35-48); ABG TCO2 24.9 MMOL/L (23-27)
[2021-08-08 03:58] LABS: Hematocrit 36.9 VOL% (42.0-52.0); Hemoglobin 11.7 GM/DL (14.0-18.0); Immature Granulocytes % 0.7 %; Immature Granulocytes Absolute 0.05 #; Lymphocytes # 0.4 10*3/uL (1.4-4.0); Lymphocytes % 5.1 % (21.2-54.2); Mean Corpuscular HGB Conc 31.7 GM/DL (32-36); Mean Corpuscular Volume 99.5 FL (87-102); Mean Platelet Volume 11.4 FL (9.6-12.0); Monocytes % 3.7 % (1.7-12.7); Neutrophils % 90.5 % (38.7-73.9); Platelet Count 124 T/CUMM (130-400); Red Blood Count 3.71 MC/CUMM (3.8-5.5); Red Cell Distribution Width 15.2 % (9.3-17.3); White Blood Count 7.3 T/CUMM (4-12)
[2021-08-08 04:23] LABS: Potassium 4.6 MMOL/L (3.5-5.1)
[2021-08-08] MEDS: INSULIN REGULAR 100 UNIT/ML SUBCUT SCH ×4 (05:18→18:07)
[2021-08-08] MEDS: LEVOTHYROXINE 150 MCG TABLET PO SCH (06:14)
[2021-08-08] MEDS: carvediloL 6.25 MG TABLET PO SCH ×2 (07:46→16:15)
[2021-08-08] MEDS: FUROSEMIDE 40 MG/4 ML VIAL IV SCH ×2 (07:48→16:19)
[2021-08-08] MEDS: methylPREDNISolone SOD SUC 40 MG/1 ML VIAL IV SCH ×2 (07:49→20:39)
[2021-08-08] MEDS: FONDAPARINUX 2.5 MG/0.5 ML SYRINGE SUBCUT SCH (07:50)
[2021-08-08] MEDS: ALPRAZolam 0.5 MG TABLET PO SCH ×3 (08:16→20:40)
[2021-08-08] MEDS: amLODIPine 5 MG TABLET PO SCH (08:16)
[2021-08-08] MEDS: OLANZapine 5 MG TABLET PO SCH (08:16)
[2021-08-08] MEDS: PREGABALIN 75 MG CAPSULE PO SCH ×2 (08:16→20:39)
[2021-08-08] MEDS: FOLIC ACID 1 MG TABLET PO SCH (08:16)
[2021-08-08] MEDS: SENNA 8.6 MG TABLET PO SCH ×2 (08:16→20:40)
[2021-08-08] MEDS: DOCUSATE SODIUM 100 MG/10 ML UDCUP PO SCH ×2 (08:17→20:39)
[2021-08-08] MEDS: PANTOPRAZOLE 40 MG VIAL IV SCH (08:18)
[2021-08-08] MEDS: VANCOMYCIN INJ 1,500 MG in SODIUM CHLORIDE 0.9% 500 ML IV SCH (17:02)
[2021-08-08] MEDS: POLYETHYLENE GLYCOL POWDER 17 GM PACK PO SCH (20:39)
[2021-08-09] MEDS: INSULIN REGULAR 100 UNIT/ML SUBCUT SCH ×4 (00:15→18:00)
[2021-08-09] MEDS: ALBUTEROL/IPRATROPIUM 3 ML NEB RESP TX SCH ×4 (00:57→19:07)
[2021-08-09] MEDS: MEROPENEM 500 MG in SODIUM CHLORIDE 0.9% 100 ML IV SCH ×4 (01:55→20:38)
[2021-08-09 03:34] LABS: ABG Base Excess 6.2 MMOL/L (-2.5-2.5); ABG Oxygen Saturation 96.7 % (95-100); ABG PCO2 45.5 MM HG (35-48); ABG PH 7.444 (7.35-7.45); ABG PO2 93.1 MM HG (80-95); ABG TCO2 27.5 MMOL/L (23-27)
[2021-08-09 03:40] LABS: Hematocrit 37.2 VOL% (42.0-52.0); Immature Granulocytes % 0.8 %; Immature Granulocytes Absolute 0.06 #; Lymphocytes # 0.4 10*3/uL (1.4-4.0); Lymphocytes % 4.9 % (21.2-54.2); Mean Corpuscular Volume 99.2 FL (87-102); Mean Platelet Volume 11.5 FL (9.6-12.0); Monocytes % 4.7 % (1.7-12.7); Neutrophils % 89.6 % (38.7-73.9); Red Cell Distribution Width 15.1 % (9.3-17.3); White Blood Count 7.4 T/CUMM (4-12)
[2021-08-09 03:44] LABS: Hemoglobin 11.9 GM/DL (14.0-18.0); Platelet Count 121 T/CUMM (130-400); Red Blood Count 3.75 MC/CUMM (3.8-5.5)
[2021-08-09 03:53] LABS: Calcium 8.7 MG/DL (8.5-10.1); Potassium 4.5 MMOL/L (3.5-5.1)
[2021-08-09 04:05] LABS: Hypochromia 1+; Lymphocytes 6 % (20-55); Microcytosis 1+; Platelet Estimate Normal; Segmented Neutrophils 92 % (50-85); Total Cells Counted 100
[2021-08-09 04:13] LABS: Osmolality,Calculated 305.3 MOS/KG (273-304)
[2021-08-09] MEDS: LEVOTHYROXINE 150 MCG TABLET PO SCH (06:01)
[2021-08-09] MEDS: methylPREDNISolone SOD SUC 40 MG/1 ML VIAL IV SCH ×2 (08:44→20:39)
[2021-08-09] MEDS: carvediloL 6.25 MG TABLET PO SCH ×2 (08:44→17:17)
[2021-08-09] MEDS: FUROSEMIDE 40 MG/4 ML VIAL IV SCH ×2 (08:44→15:42)
[2021-08-09] MEDS: SENNA 8.6 MG TABLET PO SCH ×2 (08:45→20:43)
[2021-08-09] MEDS: PANTOPRAZOLE 40 MG VIAL IV SCH (08:45)
[2021-08-09] MEDS: DOCUSATE SODIUM 100 MG/10 ML UDCUP PO SCH ×2 (08:45→20:43)
[2021-08-09] MEDS: POLYETHYLENE GLYCOL POWDER 17 GM PACK PO SCH (08:45)
[2021-08-09] MEDS: OLANZapine 5 MG TABLET PO SCH (08:45)
[2021-08-09] MEDS: FONDAPARINUX 2.5 MG/0.5 ML SYRINGE SUBCUT SCH (08:45)
[2021-08-09] MEDS: FOLIC ACID 1 MG TABLET PO SCH (08:45)
[2021-08-09] MEDS: PREGABALIN 75 MG CAPSULE PO SCH ×2 (08:45→20:43)
[2021-08-09] MEDS: amLODIPine 5 MG TABLET PO SCH (08:45)
[2021-08-09] MEDS: ALPRAZolam 0.5 MG TABLET PO SCH ×3 (08:45→20:43)
[2021-08-09] MEDS ORDERED: BISACODYL 10 MG SUPP RECTAL ONE (09:00)
[2021-08-09] MEDS ORDERED: VANCOMYCIN INJ 1,500 MG in SODIUM CHLORIDE 0.9% 500 ML IV SCH (15:00)
[2021-08-09] MEDS: OLANZapine 10 MG VIAL IM PRN (23:42)
[2021-08-10] MEDS: ALBUTEROL/IPRATROPIUM 3 ML NEB RESP TX SCH ×3 (00:05→12:37)
[2021-08-10] MEDS: INSULIN REGULAR 100 UNIT/ML SUBCUT SCH ×3 (00:53→13:18)
[2021-08-10] MEDS: MEROPENEM 500 MG in SODIUM CHLORIDE 0.9% 100 ML IV SCH ×3 (02:09→14:21)
[2021-08-10 04:52] LABS: Hematocrit 37.5 VOL% (42.0-52.0); Immature Granulocytes Absolute 0.09 #; Lymphocytes # 0.4 10*3/uL (1.4-4.0); Lymphocytes % 4.8 % (21.2-54.2); Mean Platelet Volume 11.6 FL (9.6-12.0); Monocytes % 4.2 % (1.7-12.7); Platelet Count 120 T/CUMM (130-400); Red Blood Count 3.75 MC/CUMM (3.8-5.5); Red Cell Distribution Width 14.9 % (9.3-17.3); White Blood Count 8.8 T/CUMM (4-12)
[2021-08-10 05:05] LABS: ABG Base Excess 7.7 MMOL/L (-2.5-2.5); ABG HCO3 31.4 MMOL/L (20-26); ABG Oxygen Saturation 96.5 % (95-100); ABG PH 7.432 (7.35-7.45); ABG PO2 91.1 MM HG (80-95); ABG TCO2 29.5 MMOL/L (23-27)
[2021-08-10 05:08] LABS: Calcium 8.7 MG/DL (8.5-10.1); Potassium 4.6 MMOL/L (3.5-5.1)
[2021-08-10 05:13] LABS: Band Neutrophils 1 % (0-10); Hypochromia Slight; Lymphocytes 3 % (20-55); Microcytosis Slight; Platelet Estimate Normal; Segmented Neutrophils 93 % (50-85); Total Cells Counted 100
[2021-08-10] MEDS: LEVOTHYROXINE 150 MCG TABLET PO SCH (06:21)
[2021-08-10] MEDS: DOCUSATE SODIUM 100 MG/10 ML UDCUP PO SCH (08:07)
[2021-08-10] MEDS: ALPRAZolam 0.5 MG TABLET PO SCH ×2 (08:07→14:21)
[2021-08-10] MEDS: OLANZapine 5 MG TABLET PO SCH (08:07)
[2021-08-10] MEDS: SENNA 8.6 MG TABLET PO SCH (08:08)
[2021-08-10] MEDS: amLODIPine 5 MG TABLET PO SCH (08:08)
[2021-08-10] MEDS: FOLIC ACID 1 MG TABLET PO SCH (08:08)
[2021-08-10] MEDS: FUROSEMIDE 40 MG/4 ML VIAL IV SCH (08:08)
[2021-08-10] MEDS: PANTOPRAZOLE 40 MG VIAL IV SCH (08:08)
[2021-08-10] MEDS: carvediloL 6.25 MG TABLET PO SCH (08:08)
[2021-08-10] MEDS: methylPREDNISolone SOD SUC 40 MG/1 ML VIAL IV SCH (08:12)
[2021-08-10] MEDS: FONDAPARINUX 2.5 MG/0.5 ML SYRINGE SUBCUT SCH (08:12)
[2021-08-10] MEDS: POLYETHYLENE GLYCOL POWDER 17 GM PACK PO SCH (08:27)
[2021-08-10] MEDS: PREGABALIN 75 MG CAPSULE PO SCH (09:29)
== END 2021-08-10 16:13 | DRG 870 ==
LOC: N.ED 13:29 → SUATTDRO 16:00 → N.ICU 16:00
PROVIDERS: ADMIT Internal Medicine; ATTEND Family Medicine